=== PATIENT | female | born 1945 | race Caucasian/White ===

== ENCOUNTER 2025-03-11 07:20 | Emergency (ER) | payer MEDICARE, OTHER ==
[~2025-03-11] VITALS: Ht 162.6 cm; Wt 67.4 kg
[2025-03-11 07:56] LABS: BASOPHILS 0.9 % (0.1-1.2); EOSINOPHILS 5.1 % (0.7-5.8); LYMPHOCYTES 21.0 % (19.3-51.7); MCH 28.9 PG (25.6-32.2); MCHC 32.6 g/dL (32.2-35.5); MCV 88.6 fL (79.4-94.8); MONOCYTES 7.7 % (4.7-12.5); NEUTROPHILS 65.1 % (34.0-71.1); RBC 5.09 M/uL (3.93-5.22)
[2025-03-11 08:06] LABS: INR 0.94 (0.80-1.30); PROTIME 12.2 Sec (11.2-14.2)
[2025-03-11 08:11] LABS: ALT (SGPT) 20.0 U/L (14-59); AST (SGOT) 19.0 U/L (15-37); GLOMERULAR FILTRATION RATE,EST 62.0 mL/min (>60); PROTEIN, TOTAL 7.8 g/dL (6.4-8.2); UREA NITROGEN 20.0 mg/dL (7-18)
[2025-03-11] MEDS ORDERED: LORazepam 2 MG/ML VIAL IV ONE (10:00)
[2025-03-11 11:34] VITALS: BP 157/107
--- NOTE | 2025-03-14 10:40 | EKG ---
[facility] [address] [facility] [place], [place] [address] Signed Normal sinus rhythm Low voltage QRS Borderline ECG No previous ECGs available Confirmed by Av Lopez DO ([id number]) on 03/14/2025 10:40:24 AM Electronically Signed By: AV LOPEZ DO 03/14/25 1040 PATIENT NAME: DWAIN PRO Electrocardiogram DATE OF : 47 PHYSICIAN: AV LOPEZ DO REPORT #: [id number] REPORT IS CONFIDENTIAL AND NOT TO BE RELEASED WITHOUT AUTHORIZATION
== END 2025-03-11 11:36 | disposition home or self-care (01) ==
LOC: ED 07:20
PROVIDERS: Emergency Medicine
DX: H53.8 Other visual disturbances (principal); R44.1 Visual hallucinations; I10 Essential (primary) hypertension; I69.398 Other sequelae of cerebral infarction
CPT/HCPCS: 36415; 70450; 70496; 70498; 70551; 80053; 85025; 85610; 85730; 93005; 93010; 96374; 99285-25; J2060; Q3014; Q9967